=== PATIENT | male | born 1955 | race Caucasian/White ===

== ENCOUNTER 2018-03-20 14:27 | Emergency (ER) | payer BC, OTHER ==
[~2018-03-20] VITALS: Ht 185.4 cm; Wt 147.7 kg
[~2018-03-20 14:27] MED LIST: CEPHALEXIN500 M1 PO; NO HOME MEDICATIONS; VICODIN 5/5001 UDTAB PO
[2018-03-20 14:30] VITALS: TEMP 98
[2018-03-20] MEDS ORDERED: JANUMXR1000-50 PO (14:45)
[2018-03-20] MEDS ORDERED: LIPITOR20 MG PO (14:46)
[2018-03-20] MEDS ORDERED: PRINIVIL10 MG PO (14:46)
[2018-03-20] MEDS ORDERED: GLUCOTROL XL10 MG PO (14:47)
[2018-03-20] MEDS ORDERED: ASPIRIN 81M81 MG/TA2 PO (14:47)
[2018-03-20 16:43] VITALS: BP 158/92; PULSE 71
== END 2018-03-20 16:43 | disposition home or self-care (01) ==
LOC: COL.ER 14:27
DX: I73.9 Peripheral vascular disease, unspecified (principal); Z79.82 Long term (current) use of aspirin; Z79.84 Long term (current) use of oral hypoglycemic drugs

== ENCOUNTER → 2022-03-05 | Outpatient (CLI) | payer MEDICARE, OTHER ==
--- NOTE | 2022-03-03 13:38 | NUR ---
LMOM WITH INSTRUCTIONS AND CALL BACK NUMBER
[~2022-03-05] VITALS: Ht 185.4 cm; Wt 144.0 kg
[~2022-03-05] MED LIST changes: +ASPIRIN 81M81 MG/TA2 PO; +GLUCOTROL XL10 MG PO; +JANUMXR1000-50 PO; +LIPITOR20 MG PO; +LOZOL1.25 MG PO; +PLAVIX 75MG TAB75 MG PO; +PRINIVIL10 MG PO
[2022-03-05 10:52] VITALS: BP 121/71; PULSE 77; TEMP 97.5
[2022-03-05 12:06] VITALS: BP 119/78; PULSE 69
[2022-03-05 12:20] VITALS: BP 139/81; PULSE 91
[2022-03-05 12:21] VITALS: BP 131/83; PULSE 86
[2022-03-05 12:22] VITALS: BP 121/82; PULSE 84
[2022-03-05 12:23] VITALS: BP 116/78; PULSE 78
== END ==
LOC: COL.CARD 10:01
DX: I77.9 Disorder of arteries and arterioles, unspecified (principal)
CPT/HCPCS: A9500; J2785

== ENCOUNTER → 2023-08-13 | Outpatient (CLI) | payer MEDICARE, OTHER | LOC: COL.RAD 12:02 | DX: Z12.2 Encounter for screening for malignant neoplasm of respiratory organs (principal); Z87.891 Personal history of nicotine dependence ==